=== PATIENT | female | born 1980 | race Caucasian/White ===

== ENCOUNTER 2018-07-26 05:44 | Inpatient (IN) | payer OTHER ==
[2018-07-26 07:50] LABS: ADD UMIC YES; UR ASCORBIC ACID NEGATIVE (NEGATIVE); UR BACTERIA FEW /HPF (NONE SEEN); UR BILIRUBIN (Dip) NEGATIVE (NEGATIVE); UR BLOOD (Dip) NEGATIVE (NEGATIVE); UR CLARITY SLIGHTLY CLOUDY (CLEAR); UR COLOR YELLOW (YELLOW); UR GLUCOSE (Dip) NEGATIVE (NEGATIVE); UR KETONES (Dip) NEGATIVE (NEGATIVE); UR LEUKOCYTE ESTERASE (Dip) TRACE Leu/ul (NEGATIVE); UR NITRITE (Dip) NEGATIVE (NEGATIVE); UR RBC 1 /HPF (0-5); UR SPECIFIC GRAVITY (Dip) 1.014 (1.003-1.030); UR SQUAMOUS EPITHELIAL CELL FEW /HPF (FEW); UR TOTAL PROTEIN (Dip) NEGATIVE (NEGATIVE); UR UROBILINOGEN (Dip) NEGATIVE (NEGATIVE); UR WBC 2 /HPF (0-5)
[2018-07-26] MEDS ORDERED: IBUPROFEN 600 MG TAB PO (08:00)
[2018-07-26] MEDS ORDERED: BUTORPHANOL 2 MG INJ IV (08:00)
[2018-07-26] MEDS ORDERED: MISOPROSTOL 200 MCG TAB PR ×2 (08:00→23:30)
[2018-07-26] MEDS ORDERED: OXYCODONE/ACETAMINOPHEN (5/325) TAB PO (08:00)
[2018-07-26] MEDS ORDERED: CARBOPROST 250 MCG INJ IM ×2 (08:00→23:30)
[2018-07-26] MEDS ORDERED: METHYLERGONOVINE 0.2 MG INJ IM ×2 (08:00→23:30)
[2018-07-26] MEDS ORDERED: LIDOCAINE 1% (MPF) 30 ML INJ INJ (08:00)
[2018-07-26] MEDS ORDERED: OXYTOCIN 30 UNITS/LR 500 ML IV ×5 (08:00→23:30)
[2018-07-26 08:27] LABS: ADD MAN DIFF? NO
[2018-07-26 08:40] LABS: WHITE BLOOD COUNT 14.5 10^3/ul (4.8-10.8)
[2018-07-26 08:40] LABS: BASOPHIL # 0.1 10^3/ul (0.0-0.1); BASOPHILS % 0.3 % (0.0-2.0); EOSINOPHILS # 0.1 10^3/ul (0.0-0.5); EOSINOPHILS % 0.5 % (0.0-7.0); HEMATOCRIT 34.5 % (37.0-47.0); HEMOGLOBIN 11.2 g/dl (12.0-16.0); LYMPHOCYTES # 1.8 10^3/ul (0.8-2.9); LYMPHOCYTES % 12.4 % (15.0-51.0); MEAN CORPUSCULAR HEMOGLOBIN 27.7 pg (29.0-33.0); MEAN CORPUSCULAR HGB CONC 32.5 g/dl (32.0-37.0); MEAN CORPUSCULAR VOLUME 85.2 fl (82.0-101.0); MEAN PLATELET VOLUME 10.8 fl (7.4-10.4); MONOCYTE # 1.4 10^3/ul (0.3-0.9); MONOCYTES % 9.9 % (0.0-11.0); NEUTROPHILS % 76.3 % (39.0-77.0); PLATELET COUNT 246 10^3/UL (140-415); RED BLOOD COUNT 4.05 10^6/ul (4.20-5.40); RED CELL DISTRIBUTION WIDTH 16.8 % (11.5-14.5)
[2018-07-26 08:56] LABS: INR 0.89; PARTIAL THROMBOPLASTIN TIME 22.5 Sec (23.0-35.0); PROTIME 12.2 Sec (11.9-14.9)
[2018-07-26] MEDS: LACTATED RINGER'S 1,000 ML IV ×5 (10:07→20:37)
[2018-07-26] MEDS: MISOPROSTOL 50 MCG CAPSULE PO (10:31)
[2018-07-26 12:58] LABS: HEPATITIS B SURFACE ANTIGEN NEGATIVE (NEGATIVE)
[2018-07-26] MEDS ORDERED: NALOXONE (0.4 MG/ML) INJ IV (13:30)
[2018-07-26] MEDS ORDERED: FENTAnyl 2MCG/ML-ROPIV 0.2% 100 ML BAG EPI (13:30)
[2018-07-26] MEDS ORDERED: ONDANSETRON 4 MG INJ IV (13:30)
[2018-07-26] MEDS ORDERED: DIPHENHYDRAMINE 50 MG INJ IV (13:30)
[2018-07-26 14:54] LABS: RAPID PLASMA REAGIN NONREACTIVE (NR)
[2018-07-26] MEDS ORDERED: METHYLERGONOVINE 0.2 MG INJ (20:00)
[2018-07-26] MEDS: CITRIC ACID/NA CITRATE 30 ML CUP PO (22:00)
[2018-07-26] MEDS ORDERED: CEFAZOLIN 2 GM/50 ML (PMX) 50 ML IVPB ×3 (22:00→23:30)
[2018-07-26] MEDS ORDERED: CITRIC ACID/NA CITRATE 30 ML CUP (22:02)
[2018-07-26] MEDS ORDERED: LIDOCAINE 1.5%/EPI MPF (SDV) 30 ML VIAL (22:13)
[2018-07-26] MEDS ORDERED: METOCLOPRAMIDE 10 MG INJ (22:19)
[2018-07-26] MEDS ORDERED: KETOROLAC 30 MG INJ (22:25)
[2018-07-26] MEDS ORDERED: morphine SULFATE/PF (10 MG/10 ML) INJ (22:53)
[2018-07-26] MEDS: OXYTOCIN 30 UNITS/LR 500 ML IV (23:15)
[2018-07-26] MEDS ORDERED: NACL 0.9% 3 ML SYG IV (23:30)
[2018-07-27] MEDS: IBUPROFEN 600 MG TAB PO
[2018-07-27] MEDS: OXYTOCIN 30 UNITS/LR 500 ML IV (01:27)
[2018-07-27] MEDS: LACTATED RINGER'S 1,000 ML IV ×3 (05:30→19:00)
[2018-07-27] MEDS: CEFAZOLIN 2 GM/50 ML (PMX) 50 ML IVPB ×3 (05:58→21:50)
[2018-07-27 07:11] LABS: ADD MAN DIFF? NO
[2018-07-27 07:17] LABS: BASOPHILS % 0.1 % (0.0-2.0); EOSINOPHILS % 0.3 % (0.0-7.0); HEMATOCRIT 26.6 % (37.0-47.0); HEMOGLOBIN 8.7 g/dl (12.0-16.0); LYMPHOCYTES # 1.9 10^3/ul (0.8-2.9); LYMPHOCYTES % 12.9 % (15.0-51.0); MEAN CORPUSCULAR HGB CONC 32.7 g/dl (32.0-37.0); MEAN CORPUSCULAR VOLUME 85.5 fl (82.0-101.0); MEAN PLATELET VOLUME 10.5 fl (7.4-10.4); MONOCYTE # 1.3 10^3/ul (0.3-0.9); MONOCYTES % 8.7 % (0.0-11.0); NEUTROPHIL # 11.5 10^3/ul (1.6-7.5); NEUTROPHILS % 77.5 % (39.0-77.0); PLATELET COUNT 190 10^3/UL (140-415); RED BLOOD COUNT 3.11 10^6/ul (4.20-5.40); RED CELL DISTRIBUTION WIDTH 16.8 % (11.5-14.5)
[2018-07-27 07:17] LABS: WHITE BLOOD COUNT 14.9 10^3/ul (4.8-10.8)
[2018-07-27] MEDS: KETOROLAC 30 MG INJ IV ×2 (12:46→21:49)
[2018-07-27] MEDS: FERROUS SULFATE (EC) 325 MG TAB PO (21:49)
[2018-07-28] MEDS: OXYCODONE/ACETAMINOPHEN (5/325) TAB PO ×5 (01:37→23:53)
[2018-07-28] MEDS: LACTATED RINGER'S 1,000 ML IV (03:00)
[2018-07-28 08:48] LABS: ADD MAN DIFF? NO
[2018-07-28 08:49] LABS: BASOPHILS % 0.2 % (0.0-2.0); EOSINOPHILS # 0.1 10^3/ul (0.0-0.5); EOSINOPHILS % 0.4 % (0.0-7.0); HEMATOCRIT 25.3 % (37.0-47.0); HEMOGLOBIN 8.5 g/dl (12.0-16.0); LYMPHOCYTES # 1.9 10^3/ul (0.8-2.9); LYMPHOCYTES % 12.9 % (15.0-51.0); MEAN CORPUSCULAR HEMOGLOBIN 28.2 pg (29.0-33.0); MEAN CORPUSCULAR HGB CONC 33.6 g/dl (32.0-37.0); MEAN CORPUSCULAR VOLUME 84.1 fl (82.0-101.0); MONOCYTE # 1.3 10^3/ul (0.3-0.9); MONOCYTES % 9.2 % (0.0-11.0); NEUTROPHILS % 76.4 % (39.0-77.0); NUCLEATED RED BLOOD CELLS% 0.1 /100WBC (0.0-0.0); PLATELET COUNT 198 10^3/UL (140-415); RED BLOOD COUNT 3.01 10^6/ul (4.20-5.40); RED CELL DISTRIBUTION WIDTH 16.6 % (11.5-14.5)
[2018-07-28 08:49] LABS: WHITE BLOOD COUNT 14.4 10^3/ul (4.8-10.8)
[2018-07-28] MEDS: FERROUS SULFATE (EC) 325 MG TAB PO ×2 (09:25→21:40)
[2018-07-29] MEDS: IBUPROFEN 600 MG TAB PO ×2 (08:49→12:00)
[2018-07-29] MEDS: FERROUS SULFATE (EC) 325 MG TAB PO (08:49)
[2018-07-29] MEDS: LANOLIN HPA 1 PKT TOP (13:18)
[2018-07-29] MEDS: OXYCODONE/ACETAMINOPHEN (5/325) TAB PO (13:18)
== END 2018-07-29 16:13 | disposition home or self-care (01) | DRG 788 ==
LOC: OBT 05:44 → PP1 07-27 01:52 → L-D 05:44 → OBT 07:32 → L-D 07:21
PROC: 10D00Z1 Extraction of Products of Conception, Low, Open Approach (ICD-10-PCS; principal; 2018-07-26)
DX: O76 Abnormality in fetal heart rate and rhythm complicating labor and delivery (principal); O69.81X0 Labor and delivery complicated by cord around neck, without compression, not applicable or unspecified; Z37.0 Single live birth; Z3A.39 39 weeks gestation of pregnancy
CPT/HCPCS: 62322; 76815; 76818; 81001; 85025; 85610; 85730; 86592; 86850; 86900; 86901; 87086; 87340; 99464